=== PATIENT | female | born 1970 | race Caucasian/White ===

== ENCOUNTER 2016-10-29 05:19 | Inpatient (IN) | payer MEDICAID ==
--- NOTE | 2016-10-28 13:14 | NUR ---
10/28/16: CHACKO APPT: ANESTHESIA NOTIFIED OF ABNORMAL EKG READOUT. PATIENT DENIES CHEST PAIN OR OTHER SYMPTOMS. PUSHPA RIVERA FLATWORK ASSEMBLER HERE TO SPEAK WITH PATIENT & REVIEW EKG W/DR. EAST. DR. EAST STATES CARDIAC CLEARANCE NEEDED. PATIENT STATES DOES NOT HAVE PREFERENCE FOR CARDIOLOGY GROUP. SHELLY OCAMPO APN NOTIFIED OF ABOVE. STATES TO CONSULT [facility]. EKG FAXED TO [facility]PER[facility] FOR DR. LANDON TO REVIEW. PATIENT INFORMED DR. LANDON WILL COME TO SEE HER AFTER HE IS DONE WITH CASE.
[2016-10-28 13:58] LABS: BASOPHILS 0.3 % (0.0-2.0); EOSINOPHILS 1.3 % (0-7); HEMOGLOBIN 14.9 g/dL (12-16); IMMATURE GRANULOCYTES 0.2 % (0-5); LYMPHOCYTES 37.5 % (15-50); MCH 31.6 pg (26.0-34.0); MCHC 34.7 g/dL (31.0-37.0); MCV 91.1 fL (80.0-100.0); MEAN PLATELET VOLUME 9.5 fL (7.4-10.4); MONOCYTES 4.7 % (2-11); PLATELET COUNT 245 10x3/uL (130-400); RBC 4.72 10x6/uL (4.00-5.40); RDW 12.3 % (11.5-14.5); WBC 6.2 10x3/uL (4.8-10.8)
[2016-10-28 14:12] LABS: CALC OSMOLALITY 282 mosm/kg (275-300); CALCIUM 9.1 mg/dL (8.5-10.1); CARBON DIOXIDE 30.4 mmol/L (21.0-32.0); CHLORIDE - SERUM 106 mmol/L (98-107); CREATININE - SERUM 0.8 mg/dL (0.6-1.3); GLUCOSE 89 mg/dL (74-106); POTASSIUM - SERUM 3.7 mmol/L (3.5-5.1); SODIUM 143 mmol/L (136-145); UREA NITROGEN 11 mg/dL (7-18); eGFR NON AFRICAN AMERICAN 81 mL/min (90-120)
[2016-10-28 14:13] LABS: INR 0.93 (0.85-1.17); PROTIME 12.3 SECONDS (11.6-15.0)
[2016-10-28 14:34] LABS: COLOR YELLOW (YELLOW)
[2016-10-28 14:35] LABS: APPEARANCE HAZY (CLEAR); BACTERIA FEW /hpf (NONE SEEN); BILIRUBIN NEGATIVE (NEGATIVE); EPITHELIAL CELLS 0-5 /hpf (0-5); GLUCOSE NEGATIVE (NEGATIVE); KETONE NEGATIVE (NEGATIVE); LEUKOCYTE ESTERASE NEGATIVE (NEGATIVE); NITRITE NEGATIVE (NEGATIVE); PROTEIN NEGATIVE (NEGATIVE); RED CELLS - URINE 0-5 /hpf (0-5); SPECIFIC GRAVITY 1.015 (1.005-1.020); UROBILINOGEN NORMAL (NORMAL); WHITE CELLS - URINE OCC /hpf (0-5)
[2016-10-28 14:36] LABS: MUCUS <1+ /lpf (NONE SEEN)
[2016-10-29] VITALS (19 sets, daily range): BP systolic 89–139; BP diastolic 48–91; Ht 172.7 cm; Wt 81.8 kg
[~2016-10-29] VITALS: Ht 172.7 cm; Wt 81.8 kg
[~2016-10-29 05:19] MED LIST: ABILIFY15 MG PO; CELEBREX200 MG PO; KLONOPIN0.5 MG PO; LIDODERM 5 %1 PATCH TRANSDERM; LYRICA50 MG PO; MELATONIN5 MG PO; PROVENTIL HFA6.7 GM INH; SOMA350 MG PO
--- NOTE | 2016-10-29 08:16 | NUR ---
0804: ATTEMPTED TO REACH FAMILY EXT 2500 AND 2525, UNABLE TO FIND FAMILY. PT STATED PRIOR TO SURGERY THAT HER SISTER WENT TO TAKE CARE OF HER GRANDSON AND WOULD BE BACK AFTER SHE TOOK HIM TO SCHOOL. TALKED TO FRANCISCA IN OP EXT 4950 STATED FAMILY HAS NOT RETURED AND WOULD CALL ME WHEN/IF FAMILY RETURNS. -ECOSTER
--- NOTE | 2016-10-29 08:18 | NUR ---
RADHA: LOT #: [id number] EXP: 05/16/2019 PLACEMENT: RIGHT THIGH CAUTERY: CUT: BIPOLAR: SCD: PLACED ON BILATERAL LEGS ON AT 0722. LOWER RUBEN HUGGER PLACED PER ANESTHESIA AT 0722 AND IS ON HIGH.
--- NOTE | 2016-10-29 11:35 | NUR ---
RECEIVED PT TO ROOM CV08, TRANSFERED TO NEW BED AND MONITORS CONNECTED. NEURO CHECK COMPLETE. NECK INCISION CDI, MEY KARLY AND COMPRESSED.
--- NOTE | 2016-10-29 11:45 | NUR ---
PT PLACED ON 3L NC, SPO2 INCREASED TO 96%.
--- NOTE | 2016-10-29 12:10 | NUR ---
ICE CHIPS PROVIDED TO PATIENT. SISTER AT BEDSIDE, UPDATE PROVIDED.
--- NOTE | 2016-10-29 13:40 | NUR ---
XRAY IN PROGRESS.
--- NOTE | 2016-10-29 14:10 | NUR ---
Patient Name: JUSTINE MATHEW Admission Status: Elective Accout number: [id number] Admission Date: 10-29-2016 : 1970 Admission Diagnosis: Attending: TESS Current LOS: 1 Anticipated DC Date: 10-30-2016 Planned Disposition: Home Primary Insurance: [place] PRIVATE OPTIONS STEPH Is the patient Alert and Oriented? Yes * How many steps to enter\exit or inside your home? 3 * PCP DR KATIE BLAKE * Pharmacy [facility] * Preadmission Environment Home with Family * ADLs Independent * Equipment Cane * List name and contact numbers for known caregivers / representatives who currently or will assist patient after discharge: GILMASKYLER MEJÍA [phone] * Community resources currently utilized None * Additional services required to return to the preadmission environment? No * Can the patient safely return to the preadmission environment? Yes * Has this patient been hospitalized within the prior 30 days at any hospital? No Discharge Planning Comments: CM MET WITH PATIENT TO ASSESS DC PLAN/NEEDS. PT STATED SHE LIVES AT HOME WITH FAMILY AND IS INDEPENDENT IN HER CARE/ADL'S. SHE STATED SHE HAS FAMILY THAT WILL DRIVE HER HOME AT DC. REPORTS NEVER USING HH OR ANY REHAB SERVICES IN THE PAST AND DENIED NEED FOR HH/REHAB/DME AT D/C. STATED HER HOME IS A SAFE PLACE AND PLANS TO RETURN HOME AT D/C. CM WILL FOLLOW AND ASSIST WITH ANY DC NEEDS THEY ARISE. Day Guard: Gena Arriaga RN, CM
--- NOTE | 2016-10-29 15:30 | NUR ---
REASSESSMENT VIA FLOWSHEET, SEE FOR DETAILS.
--- NOTE | 2016-10-29 16:25 | NUR ---
MORPINE GIVEN PER ORDER FOR PAIN. PT INCISION WNL. VSS.
--- NOTE | 2016-10-29 19:40 | NUR ---
REPORT REC'D AND CARE ASSUMED, REC'D PT ON ROOM AIR RESTING EYES CLOSED, AWAKENS TO VERBAL STIMULI, ORIENTED X 4, STATES " I WANT TO GO HOME", EXPLAINED TO PT THE DOCTOR WOULD BED IN IN THE MORNING AND DECIDED WHETHER OR NOT TO DISCHARGE, VERABLIZES UNDERSTANDING, LEFT FOREARM PIV WITH LR @ 10CC/HR MIDLINE NECK INCISION WITH DERMABOND CDI, LEFT NECK MEY DRAIN WITH SANGUINOUS DRAINAGE NOTED, PT DENIES PAIN AT THIS TIME, DISLA PATENT DRAINING CLEAR YELLOW URINE, PPP, SR UP X 2, CALL LIGHT IN REACH.
--- NOTE | 2016-10-29 20:58 | NUR ---
EVENING MEDS GIVEN, SISTER @ BS FOR VISITING, UPDATE GIVEN AND QUESTIONS ANSWERED.
--- NOTE | 2016-10-29 22:55 | NUR ---
PT COMPLAINS OF SLIGHT NECK DISCOMFORT AND WANTING "SOMETHING TO HELP ME SLEEP" 3MG MORPHINE GIVEN SLOW IVP, BP STABLE, WILL MONITOR CLOSELY FOR CHANGES.
[2016-10-30] VITALS (10 sets, daily range): BP systolic 91–133; BP diastolic 49–85
--- NOTE | 2016-10-30 00:45 | NUR ---
PT REQUESTING SOMETHING FOR NECK PAIN, PT REQUESTING SOMA, SOMA PROVIDED AT THIS TIME, DENIES FURTHER NEEDS, SR UP X 2, BED IN LOWEST POSITION, CALL LIGHT IN REACH.
--- NOTE | 2016-10-30 01:00 | NUR ---
NO CHANGES IN NEURO STATUS AT THIS TIME, PT DENIES NEEDS.
--- NOTE | 2016-10-30 03:00 | NUR ---
PT RESTING EYES CLOSED, RESP EVEN AND UNLABORED, VSS, WILL CONT TO MONITOR FOR CHANGES.
--- NOTE | 2016-10-30 04:30 | NUR ---
PT AWAKE, DENIES PAIN AT THIS TIME, MEY EMPTIED OF APPROX 15CC, PT REQUESTING SOMETHING TO DRINK, LEMON ATMAUTLUAK LEONARDO PROVIDED, PT DENIES FURTHER NEEDS, BP STABLE, WILL CONT TO MONITOR FOR CHANGES.
--- NOTE | 2016-10-30 06:30 | NUR ---
NO VISITORS IN AT THIS TIME, AM MEDS GIVEN AT THIS TIME, PT RESTING QUIETLY WATCHING TV, PT DENIES NEEDS, SR UP X 2, CALL LIGHT IN REACH.
--- NOTE | 2016-10-30 07:00 | NUR ---
PT REPORT REC'D, PT CARE ASSUMED. PT AAOX4, SITTING UP IN BED, NO C/O PAIN. MEY DRAIN TO NECK, LEFT FOREARM PIV WITH FLUIDS INFUSING, SEE FLOW SHEET. BILAT PEDAL PULSES PALPABLE.DISLA CATHETER FREE OF KINKS TO GRAVITY WITH CLEAR YELLOW URINE RETURN. VSS, SHIFT ASSESSMENT COMPLETED, SEE FLOW SHEET. ROOM FREE OF CLUTTER, CALL LIGHT IN REACH. WILL CONTINUE TO MONITOR PT.
--- NOTE | 2016-10-30 07:15 | NUR ---
SHELLY OCAMPO APN AT THE BEDSIDE, ALL QUESTIONS ANSWERED, DC'ED NAIF, DC'ED MEY DRAIN, TIP INTACT, 4X4'S APPLIED DRESSING APPLIED, WILL CONTINUE TO MONITOR PT.
[2016-10-30] MEDS ORDERED: TYLENOL #4 W/CO1 TAB PO (07:51)
--- NOTE | 2016-10-30 07:57 | HP ---
PATIENT: TORI MATHEWURA Rosario MEDICAL RECORD: [id number] ACCOUNT: [id number] LOCATION:[facility] : [birth year] ADMISSION DATE: 10/29/16 HISTORY AND PHYSICAL EXAMINATION CHIEF COMPLAINT: Neck pain and bilateral upper extremity pain, worse in the left than right. HISTORY OF PRESENT ILLNESS: This is a pleasant white female who presented to our office initially on 03/12/2015 with complaints of back pain. She then returned to our clinic on 09/23/2015 with complaints of neck pain and she was seen per Dr. Ruffin. She had a cervical injection at that time and then returned a call on October 07, pain was much worse and she is here today due to upper extremity pain, worsening weakness bilaterally and falls with difficulty walking. She tried 2 months of physical therapy and it made it worse. PAST MEDICAL HISTORY: Significant for the aforementioned deficits and cervical cancer. PAST SURGICAL HISTORY: She had a left ACL repair on her left knee. She has had a . FAMILY HISTORY: She is adopted so she does not really any of the history of her parents. SOCIAL HISTORY: She smokes a pack a day. Denies any alcohol use and she is . REVIEW OF SYSTEMS: She denies any recent chest pain, shortness of breath or weight changes. PHYSICAL EXAMINATION: HEENT: Normocephalic. Pupils are equal, reactive to light. CHEST: Clear bilaterally to auscultation. HEART: S1 and S2. ABDOMEN: Soft, bowel sounds present. 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 The aforementioned extremity difference. IMPRESSION: C4 through C6 radiculopathy and myelopathy. PLAN: A C3 through C6 ACDF. The risk and benefits of surgery have been explained to her in detail. Risks include bleeding, failure to relieve symptoms, problems with anesthesia and . Time was allowed for questions. Questions were answered. The patient wishes to proceed with surgery. [facility] Dr. Ruffin has the disk with him for surgery in a.m. TRANSINT:[id number] Voice Confirmation ID: [id number] DOCUMENT ID: [id number] Dictated By: SHELLY OCAMPO I have interviewed/examined the above patient and agree with these documented HISTORY AND PHYSICAL [id number] JUSTINE MATHEW findings. VITALY RUFFIN MD at 0712 at 0757 CC: [id number] DICTATION DATE: 10/28/16 1051 GARNETT FIXER: 10/28/16 1144 ADM IN [facility] [address] [place] [address]
--- NOTE | 2016-10-30 10:50 | NUR ---
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 D/C INSTURCTION GIVEN, PT VERBALIZED UNDERSTANDING FOR D/C INSTUCTIONS.
--- NOTE | 2016-11-20 07:12 | OP ---
PATIENT NAME: NIMISHA BROWN MEDICAL RECORD: [id number] :66 [facility] ADMISSION DATE:10/29/16 SURGEON: VITALY DUBON MD DATE OF OPERATION: 10/29/2016 PREOPERATIVE DIAGNOSES: 1. Cervical radiculopathy, C4 through C6. 2. Cervical stenosis. POSTOPERATIVE DIAGNOSES: 1. Cervical radiculopathy, C4 through C6. 2. Cervical stenosis. PROCEDURE PERFORMED: Anterior approach cervical spine: 1. Application of intervertebral biomechanical devices at C3-C4, C4-C5, C5-C6. 2. Anterior interbody arthrodesis with the endplate preparation at C3-C4, C4-C5, C5-C6. 3. Discectomy with bilateral foraminotomies and PLL take down at C3-C4, C4-C5, C5-C6. 4. Anterior plate and screw fixation from C3-C6 with bilateral vertebral body screw placement. 5. Use of intraoperative microscope with microdissection techniques. IMPLANTS: 1. Alphatec anterior cervical set. 2. A 7 mm interbody graft at C3-C4, 6 mm at C4-C5, and 7 mm at C5-C6. 3. A 51 mm Trestle Luxe plate. 4. A 16 mm variable angle screws at C3, C4, and C5 bilaterally with 16 mm fixed angled screws at C6 bilaterally. 5. Synthes DBX allograft. SPECIMENS: None. COMPLICATIONS: None apparent. FINDINGS: No durotomy; SSEPs improved throughout the case. ESTIMATED BLOOD LOSS: 25 mL. HISTORY OF PRESENT ILLNESS: Ms. Nimisha Brown is a pleasant 45-year-old female, who was evaluated for progressive cervical radiculopathy affecting primarily the C4, C5 and C6 nerve roots. I had an extensive discussion with her preoperatively regarding her MRI findings, which showed foraminal stenosis and cervical stenosis at these levels. I discussed with her in detail the risks, benefits, and options for continued conservative therapy versus operative intervention and decompression in the form of C3-C6 anterior cervical discectomy and fusion. She ultimately did agree and consent to go forth with the procedure. I discussed with her regarding the risks and benefits prior to the procedure. PROCEDURE IN DETAIL: Ms. Brown was identified by anesthesia team and transported to the operative theater. She was gently transferred over the supine position on the operative bed where general endotracheal anesthesia commenced and all appropriate lines and tubes were placed. A roll was placed underneath her scapula and her neck was placed in extension. The anterior OPERATIVE REPORT [id number] NIMISHA BROWN cervical spine was prepped and draped in the usual sterile fashion. The patient was given IV antibiotics and dexamethasone prior to the start of the procedure. A timeout was performed and agreed to by those present. Local anesthetic was infiltrated into the planned incision after the area was prepped and draped in the usual sterile fashion. A #10 blade was used to carry the level of the skin incision down to the underlying subcutaneous fascia. Bovie electrocautery was used to transect and divide the platysma muscle. Subplatysmal dissection rostrally and caudally was carried out and the fascial plane was identified between the carotid bundle laterally, and the tracheoesophageal bundle medially. This was developed bluntly until the prevertebral fascia was encountered, which was dissected with a combination of blunt and sharp dissection. A snap was affixed to the C4-C5 disc space, which confirmed to be appropriate on the lateral fluoroscopy. The disc space was marked with a Bovie electrocautery as well as a C3-C4 and C5-C6 disc spaces. The inferior portion of the C3 vertebral body superior portion of the C6 vertebral body and anterior faces of the C4 and C5 vertebral bodies were cleaned out from the soft tissue with a low power Bovie electrocautery. The longus colli was released at these levels as well to facilitate a retractor placement. Starting at C3-C4, [place] pins were placed after self-retaining retractors were introduced and seated deep to the longus colli. A square cut was made in the C3-C4 disc with a 15-blade and microscope was brought in the field for use until the conclusion of the procedure. Using a combination of a paul elevator, pituitary rongeurs, Kerrison rongeurs and curettes, the C3-C4 discectomy with PLL resection and bilateral foraminotomies were carried out. The endplate preparation also occurred with a curette and paul elevator. A 7 mm trial was implanted and found to be appropriate on lateral fluoroscopy. A 7 mm graft was packed with a DBX allograft and inserted to the appropriate depth at this level. The C3 [place] pin was removed and the defect was sealed with Surgiflo hemostatic matrix and the pin was replaced in the C5 vertebral body after the self-retaining retractors were reset over the C4-C5 disc space. The discectomy at C4-C5 carried out in the exact same fashion. The blunt nerve hook was used to ensure adequate biforaminal decompression as it was at C3-C4 as well. Ultimately, a 6 mm trial was placed after endplate preparation, discectomy decompression was completed. It was found to be appropriate on lateral fluoroscopy and a 6 mm cage was packed with DBX allograft and inserted to the appropriate depth. The [place] pin from C4 was removed and the defect was sealed with Surgiflo hemostatic matrix and replace to the C6 vertebral body once the self-retaining retractors were reseated deep to the longus colli were the C5-C6 disc space. C5-C6 discectomy was carried out in identical fashion as the previous two with PLL takedown on bilateral foraminal decompression as confirmed by interrogation with a blunt nerve hook. Surgiflo hemostatic matrix was also used in the epidural space at each level prior to graft implantation and rinsed away until no further hemorrhage was appreciated. A 7 mm trial was found to be appropriate at C5-C6 and a graft of the same size was inserted to the appropriate depth and lateral fluoroscopy. This graft also was packed with DBX allograft. The [place] pins at C5 and C6 were removed and the defect was filled with Surgiflo hemostatic matrix. The area was copiously irrigated and a 51-mm plate was laid into place and evaluated on lateral fluoroscopy and then found to be appropriate. All of the screw holes were predrilled with a 12-mm drill and drill guide. A 60 mm screws variable angle were placed at C3, C4 and C5 bilaterally and fixed angled screws at C6 bilaterally. These were tightened to their final bed in a locking mechanism engaged at each screw. Final lateral x-ray was taken showing appropriate placement of the plate. Copious amount of irrigation was used in the operative tract and the self-retaining retractors were removed. The longus colli was extensively coagulated with the bipolar electrocautery to reduce the small OPERATIVE REPORT [id number] NIMISHA BROWN E amount of hemorrhage that was visible. There was no significant hemorrhage prior to ____ placement and closure. A 10-Lao round drain was laid into place over the hardware and tunneled away from the skin incision. The drain was sutured in place with a 2-0 Vicryl suture and the platysma was reapproximated with interrupted 3-0 Vicryl sutures. The skin was closed with a running 4-0 subcuticular Monocryl. The incision was cleaned with a wet and dry dressing and Dermabond placed over the skin incision. The patient was then returned to the anesthesia team for reversal and extubation. There were no complications throughout the procedure. SSEP neuromonitoring shown actually improvement in the somatosensory evoked potentials as the case progressed. There were no complications. She tolerated the procedure well. I updated the family in the waiting room immediately postoperatively and answered all questions. All sponge and needle counts were correct times 2 at the end of the case. TRANSINT:[id number] Voice Confirmation ID: [id number] DOCUMENT ID: [id number] VITALY DUBON MD at 0712 CC: [id number] DICTATION DATE: 10/29/16 1106 INTEGRATED CAMPAIGN MANAGER: 10/29/16 1635 DIS IN 10/30/16 [facility] [address] [place] [address]
== END 2016-10-30 10:50 | disposition home or self-care (01) | DRG 473 ==
LOC: D.ICU 05:19 → D.SDCHOLD 05:19 → D.CVICU 05:19 → D.SDCHOLD 07:30 → D.ICU 11:17 → D.CVICU 11:24
PROVIDERS: ADMIT Neurological Surgery
PROC: 0RG20A0 Fusion of 2 or more Cervical Vertebral Joints with Interbody Fusion Device, Anterior Approach, Anterior Column, Open Approach (ICD-10-PCS; principal; 2016-10-29 07:30)
PROC: 0RB30ZZ Excision of Cervical Vertebral Disc, Open Approach (ICD-10-PCS; 2016-10-29 07:30)
DX: M48.02 Spinal stenosis, cervical region (principal); M54.12 Radiculopathy, cervical region; F17.200 Nicotine dependence, unspecified, uncomplicated